=== PATIENT | male | born 1985 | race Caucasian/White ===

== ENCOUNTER 2023-09-19 13:02 | Emergency (ER) | payer OTHER, SELFPAY ==
[2023-09-19] VITALS (23 sets, daily range): BP systolic 123–142; BP diastolic 72–83; PULSE 95–133; RESP 24–28; TEMP 37.4–39.3; O2SAT 92–98; BMI 29.2
--- NOTE | 2023-09-19 13:20 | XR_ITS ---
Patient: MINO ESQUEDA Facility:?[facility] Patient ID:?[id number] Site Patient ID:?[id number]. Site :?[id number] Study:?XRay Chest 2V-09/19/2023 2:19:13 PM Ordering Physician:MIKEY Final Report: INDICATION: Cough. Fever. COMPARISON: None available. TECHNIQUE: 2 views. FINDINGS: Medical Devices: None. Lung Volumes: Adequate inspiration. No significant atelectasis. Lungs: Clear lungs. Pleura and Pleural spaces: No significant pleural effusion. No pneumothorax. Mediastinum: Normal cardiomediastinal silhouette. Bony Thorax and Soft Tissues: No significant incidental findings. IMPRESSION: No imaging findings pertinent to the indication for the exam or significant unrelated findings. Incidental findings described in the body of the report. Dictated by Thomas Sinclair MD @ 09/19/2023 2:23:55 PM (Electronic Signature)
[2023-09-19 13:41] LABS: Lactate Sepsis w/Reflex* 2.8 mmol/L (0.5-1.9)
--- NOTE | 2023-09-19 13:41 | ED_ITS ---
HPI - General Adult General Date Seen: 09/19/23 Chief complaint: Cough Stated complaint: Cough, severely short of breath Time Seen by Provider: 09/19/23 13:14 Source: patient, RN notes reviewed and old records reviewed Mode of arrival: ambulatory Limitations: no limitations History of Present Illness HPI narrative: Patient is a 38-year-old male who presents for evaluation of fever and cough. He says symptoms started 4 days ago with abrupt onset of fever and chills. He has not documented a temperature, but has had shaking chills. He developed a cough which is now productive. He has diffuse body aches. He has not had vomiting or diarrhea but occasionally feels nauseated. No unusual rashes, no black or bloody stools. He does have chest pain with coughing and breathing. Related Data Home Medications Medication Instructions Recorded Confirmed No Known Home Medications 09/19/23 09/19/23 Allergies Allergy/AdvReac Type Severity Reaction Status Date / Time metoclopramide [From Reglan] Allergy Unknown Verified 09/19/23 13:10 PFSH PFS Social History Smoking Status: Former smoker How often do you have a drink containing alcohol: 2-3 times a week How many standard drinks containing alcohol do you have on a typical day: 1 or 2 How often do you have six or more drinks on one occasion: Never AUDIT-C Alcohol total score: 3 Non-prescribed substance use: denies use Exam Const: Vital Signs, click to edit/add: Vital Signs - 24 hr 09/19/23 13:06 09/19/23 13:20 09/19/23 13:47 Temperature 99.4 F Pulse Rate Pulse Rate [Pulse Oximeter] 133 H 112 H Respiratory Rate 24 Blood Pressure Blood Pressure [Ri ght Upper Arm] 123/72 Pulse Oximetry 98 97 96 Oxygen Delivery Me thod Room Air Room Air 09/19/23 13:52 09/19/23 14:00 09/19/23 14:14 Temperature Pulse Rate 106 H 110 H 109 H Pulse Rate [Pulse Oximeter] Respiratory Rate Blood Pressure 142/78 H Blood Pressure [Ri ght Upper Arm] Pulse Oximetry 95 93 95 Oxygen Delivery Me thod 09/19/23 14:15 09/19/23 14:30 09/19/23 14:42 Temperature 100.0 F H Pulse Rate 108 H 113 H Pulse Rate [Pulse Oximeter] Respiratory Rate Blood Pressure Blood Pressure [Ri ght Upper Arm] Pulse Oximetry 95 96 Oxygen Delivery Me thod 09/19/23 14:43 09/19/23 14:44 09/19/23 14:45 Temperature Pulse Rate 108 H 107 H 103 H Pulse Rate [Pulse Oximeter] Respiratory Rate Blood Pressure 135/83 Blood Pressure [Ri ght Upper Arm] Pulse Oximetry 95 96 93 Oxygen Delivery Me thod 09/19/23 14:52 09/19/23 15:02 09/19/23 15:03 Temperature Pulse Rate 100 107 H Pulse Rate [Pulse Oximeter] Respiratory Rate 28 H Blood Pressure 142/81 H Blood Pressure [Ri ght Upper Arm] Pulse Oximetry 94 92 Oxygen Delivery Me thod 09/19/23 15:15 09/19/23 15:24 09/19/23 15:30 Temperature 102.8 F H Pulse Rate 101 H 104 H Pulse Rate [Pulse Oximeter] Respiratory Rate Blood Pressure Blood Pressure [Ri ght Upper Arm] Pulse Oximetry 92 94 Oxygen Delivery Me thod 09/19/23 15:32 09/19/23 15:35 Temperature 102.8 F H Pulse Rate 106 H Pulse Rate [Pulse Oximeter] Respiratory Rate Blood Pressure 128/79 Blood Pressure [Ri ght Upper Arm] Pulse Oximetry 96 Oxygen Delivery Me thod Course Course ED Course: Diagnostic considerations include viral or bacterial infection such as influenza, COVID RSV, pneumonia, pulmonary embolism, tachyarrhythmia, metabolic derangement, sepsis, among others. Patient had an EKG which showed a sinus tachycardia ventricular rate of 102. No acute ST segment changes. He had an IV placed, was given a L of normal saline. Did spike a temp up to 102.8 and was given some Tylenol. His labs show a slightly depressed white blood cell count of 4.16, normal hemoglobin. No significant left shift. D-dimer was 0.28. Metabolic panel was unremarkable. Blood sugar 120. Lactate initially was 2.8, repeat lactate after fluids was 0.5. I do think the lactate was as marker of dehydration rather than sepsis. LFTs are unremarkable. CRP mildly elevated at 4.7. Chest x-ray by my review was negative for pneumonia, congestive heart failure, effusion or other acute abnormalities. Final radiology read was negative. His viral swab was positive for influenza B. Diagnosis discussed with the patient. He is 4 days into his illness, I do not think there is any indication here for antivirals. Would recommend continued supportive care, ibuprofen and Tylenol for fever and aches, maintain hydration. Anticipate gradual improvement over the next 3-5 days. If no improvement, follow-up with primary care. Return to the ER at any time for acute worsening. Vital Signs Vital signs: Initial Vital Signs Temperature 99.4 F 09/19/23 13:06 Temperature Source Oral 09/19/23 13:06 Pulse Rate 133 H 09/19/23 13:06 Respiratory Rate 24 09/19/23 13:06 Blood Pressure 123/72 09/19/23 13:06 Blood Pressure Mean 89 09/19/23 13:06 Pulse Oximetry 98 09/19/23 13:06 Oxygen Delivery Method Room Air 09/19/23 13:06 Vital Signs Temperature 99.4 F 09/19/23 13:06 Pulse Rate 133 H 09/19/23 13:06 Respiratory Rate 24 09/19/23 13:06 Blood Pressure 123/72 09/19/23 13:06 Pulse Oximetry 98 09/19/23 13:06 Oxygen Delivery Method Room Air 09/19/23 13:06 Temperature 102.8 F H 09/19/23 15:35 Pulse Rate 106 H 09/19/23 15:32 Respiratory Rate 28 H 09/19/23 14:52 Blood Pressure 128/79 09/19/23 15:32 Pulse Oximetry 96 09/19/23 15:32 Oxygen Delivery Method Room Air 09/19/23 13:47 Medications Administered Medications: Discontinued Medications Generic Name Dose Route Start Last Admin Trade Name Freq PRN Reason Stop Dose Admin Acetaminophen 1,000 mg 09/19/23 15:33 09/19/23 15:35 Acetaminophen 500 Mg Tablet PO 09/19/23 15:34 1,000 mg ONCE ONE Administration Sodium Chloride 1,000 mls @ 1,000 mls/hr 09/19/23 13:30 09/19/23 14:43 0.9 % Sodium Chloride 1000 Ml IV 09/19/23 14:29 Infused .Q1H FATMATA Infusion Ketorolac Tromethamine 15 mg 09/19/23 13:20 09/19/23 13:45 Ketorolac 15 Mg/Ml Inj IVP 09/19/23 13:21 15 mg ONCE ONE Administration Ondansetron HCl 4 mg 09/19/23 13:20 09/19/23 14:44 Ondansetron 2 Mg/Ml Inj IVP 09/19/23 13:21 Not Given ONCE ONE Medical Decision Making Lab Data Labs: Lab Results 09/19/23 09/19/23 09/19/23 Range/Units 13:12 13:20 15:21 WBC 4.16 L (4.50-11.00) K/uL RBC 5.09 (4.30-5.90) m/uL Hgb 15.0 (13.5-17.5) gm/dL Hct 43.4 (37.0-53.0) % MCV 85 (80-100) fL MCH 30 (26-34) pg MCHC 35 (32-36) gm/dL RDW Coeff of Remigio 12.2 (11.5-15.5) % Plt Count 146 (140-440) K/uL Neut % (Auto) 75.0 H (42.0-72.0) % Lymph % (Auto) 11.1 L (20-44) % [place] % (Auto) 13.2 H (0.0-11.0) % Eos % (Auto) 0.5 (0.0-7.0) % Baso % (Auto) 0.2 (0.0-3.0) % Neut # (Auto) 3.10 (1.7-7.0) K/uL Lymph # (Auto) 0.50 L (0.90-2.90) K/uL [place] # (Auto) 0.50 (0.00-0.90) K/UL Eos # (Auto) 0.00 (0.00-0.50) K/uL Baso # (Auto) 0.00 (0.00-0.30) K/uL Abs Immat Gran (auto) 0.00 (0.00-0.30) K/uL Imm/Tot Granulo (auto) 0.0 % D-Dimer Quant (PE/DVT) (0.00-0.50) ug/ml Sodium 136 (135-149) mmol/L Potassium 3.5 L (3.6-5.1) mmol/L Chloride 103 (96-114) mmol/L Carbon Dioxide 22 (20-32) mmol/L Anion Gap 11 (7-15) mEq/L BUN 9 (5-24) mg/dL Creatinine 1.0 (0.5-1.5) mg/dL Estimated Creat Clear 83.87 Estimated GFR 99 ml/min Glucose 120 H (60-115) mg/dL Lactate 2.8 H 0.5 (0.5-1.9) mmol/L Calcium 9.0 (8.4-10.6) mg/dL Total Bilirubin 0.6 (0.1-1.5) mg/dL Direct Bilirubin 0.2 (0.0-0.5) mg/dL AST 25 (12-35) U/L ALT 20 (4-50) U/L Alkaline Phosphatase 62 (40-150) U/L C-Reactive Protein 4.7 H (0.5-1.0) mg/dL Total Protein 7.1 (6.0-8.3) g/dL Albumin 4.3 (3.3-5.0) g/dL SARS-CoV-2 (PCR) Negative SARS-CoV-2 (Negative) Influenza Type A (PCR) Negative PCR FLU A (Negative) Influenza Type B (PCR) POSITIVE PCR FLU B A (Negative) RSV (PCR) Negative PCR RSV (Negative) 09/19/23 Range/Units Unknown WBC (4.50-11.00) K/uL RBC (4.30-5.90) m/uL Hgb (13.5-17.5) gm/dL Hct (37.0-53.0) % MCV (80-100) fL MCH (26-34) pg MCHC (32-36) gm/dL RDW Coeff of Remigio (11.5-15.5) % Plt Count (140-440) K/uL Neut % (Auto) (42.0-72.0) % Lymph % (Auto) (20-44) % [place] % (Auto) (0.0-11.0) % Eos % (Auto) (0.0-7.0) % Baso % (Auto) (0.0-3.0) % Neut # (Auto) (1.7-7.0) K/uL Lymph # (Auto) (0.90-2.90) K/uL [place] # (Auto) (0.00-0.90) K/UL Eos # (Auto) (0.00-0.50) K/uL Baso # (Auto) (0.00-0.30) K/uL Abs Immat Gran (auto) (0.00-0.30) K/uL Imm/Tot Granulo (auto) % D-Dimer Quant (PE/DVT) 0.28 (0.00-0.50) ug/ml Sodium (135-149) mmol/L Potassium (3.6-5.1) mmol/L Chloride (96-114) mmol/L Carbon Dioxide (20-32) mmol/L Anion Gap (7-15) mEq/L BUN (5-24) mg/dL Creatinine (0.5-1.5) mg/dL Estimated Creat Clear Estimated GFR ml/min Glucose (60-115) mg/dL Lactate (0.5-1.9) mmol/L Calcium (8.4-10.6) mg/dL Total Bilirubin (0.1-1.5) mg/dL Direct Bilirubin (0.0-0.5) mg/dL AST (12-35) U/L ALT (4-50) U/L Alkaline Phosphatase (40-150) U/L C-Reactive Protein (0.5-1.0) mg/dL Total Protein (6.0-8.3) g/dL Albumin (3.3-5.0) g/dL SARS-CoV-2 (PCR) (Negative) Influenza Type A (PCR) (Negative) Influenza Type B (PCR) (Negative) RSV (PCR) (Negative) Discharge Plan Discharge Clinical Impression: Influenza B Patient Disposition: Home, Self-Care Condition: Improved Instructions: Influenza (ED) Additional Instructions: Ibuprofen 400 mg plus Tylenol 1000 mg three times daily with food for the next few days. Influenza is viral and will improve with time. No evidence today of pneumonia or other serious infection. See your clinic if not improved over the next 5 days. For acute worsening, return to the ER. Prescriptions: No Action No Known Home Medications Follow Up/Referrals: Provider,Not a Local [Primary Care Provider] - Stand Alone Forms: [employer] Info Instructions
[2023-09-19 13:45] LABS: Basophils Percent Auto 0.2 % (0.0-3.0); Eosinophils Percent Auto 0.5 % (0.0-7.0); Hematocrit 43.4 % (37.0-53.0); Lymphocytes Percent Auto 11.1 % (20-44); Mean Corpuscular HGB Conc 35 gm/dL (32-36); Mean Corpuscular Hemoglobin 30 pg (26-34); Mean Corpuscular Volume 85 fL (80-100); Monocytes Percent Auto 13.2 % (0.0-11.0); Platelet Count* 146 K/uL (140-440); RDW Coefficient of Variation % 12.2 % (11.5-15.5); Red Blood Count 5.09 m/uL (4.30-5.90); White Blood Count* 4.16 K/uL (4.50-11.00)
[2023-09-19] MEDS: 0.9 % SODIUM CHLORIDE 1000 ml 1,000 ML IV (13:45)
[2023-09-19] MEDS: KETOROLAC 15 MG/ML inj IVP (13:45)
[2023-09-19 13:56] LABS: Slide Review Reflex No
[2023-09-19 13:58] LABS: Chloride* 103 mmol/L (96-114); Potassium* 3.5 mmol/L (3.6-5.1); Sodium* 136 mmol/L (135-149)
[2023-09-19 13:59] LABS: PCR FLU A Negative PCR FLU A (Negative); PCR FLU B POSITIVE PCR FLU B (Negative); PCR RSV Negative PCR RSV (Negative); SARS PCR* Negative SARS-CoV-2 (Negative)
[2023-09-19 14:01] LABS: Est. Creatinine Clearance* 83.87; Estimated Glomerular Filt Rate 99 ml/min
[2023-09-19 14:02] LABS: Anion Gap 11 mEq/L (7-15); Blood Urea Nitrogen* 9 mg/dL (5-24); Carbon Dioxide* 22 mmol/L (20-32); Glucose* 120 mg/dL (60-115)
[2023-09-19 14:05] LABS: C Reactive Protein* 4.7 mg/dL (0.5-1.0)
[2023-09-19 14:10] LABS: D Dimer Quantitative* 0.28 ug/ml (0.00-0.50)
[2023-09-19 14:10] LABS: Albumin* 4.3 g/dL (3.3-5.0)
[2023-09-19 14:13] LABS: Bilirubin Direct* 0.2 mg/dL (0.0-0.5); Bilirubin Total* 0.6 mg/dL (0.1-1.5)
[2023-09-19 14:14] LABS: Alanine Aminotransferase* 20 U/L (4-50); Alkaline Phosphatase* 62 U/L (40-150); Aspartate Amino Transferase* 25 U/L (12-35); Total Protein* 7.1 g/dL (6.0-8.3)
[2023-09-19 15:24] LABS: Lactate Sepsis 2 Hour 0.5 mmol/L (0.5-1.9)
[2023-09-19] MEDS: ACETAMINOPHEN 500 MG TABLET 1000 MG PO (15:35)
== END 2023-09-19 16:10 | disposition home or self-care (01) ==
PROVIDERS: Emergency Provider Emergency Medicine
DX: J10.1 Influenza due to other identified influenza virus with other respiratory manifestations (principal)
CPT/HCPCS: 36415; 71046; 80048; 80076; 83605; 85025; 85379; 86140; 87040; 87631; 93005; 94761; 96374; 99284; 99285; A9270; J1885; J7030

== ENCOUNTER 2024-02-18 16:53 | Emergency (ER) | payer OTHER, SELFPAY ==
[2024-02-18 17:12] VITALS: BP 136/97; PULSE 82; RESP 16; TEMP 36.7; O2SAT 98; BMI 29.2
[2024-02-18 18:07] LABS: Basophils Absolute Auto 0.04 K/uL (0.00-0.30); Basophils Percent Auto 0.6 % (0.0-3.0); Eosinophils Absolute Auto 0.21 K/uL (0.00-0.50); Eosinophils Percent Auto 3.2 % (0.0-7.0); Hematocrit 46.1 % (37.0-53.0); Hemoglobin* 15.8 gm/dL (13.5-17.5); Immature Granulocytes Abs Auto 0.01 K/uL (0.00-0.30); Immature Granulocytes Pct Auto 0.2 %; Lymphocytes Absolute Auto 1.68 K/uL (0.90-2.90); Lymphocytes Percent Auto 25.3 % (20-44); Mean Corpuscular HGB Conc 34 gm/dL (32-36); Mean Corpuscular Hemoglobin 29 pg (26-34); Mean Corpuscular Volume 86 fL (80-100); Monocytes Percent Auto 7.4 % (0.0-11.0); Neutrophils Absolute Auto 4.22 K/uL (1.7-7.0); Neutrophils Percent Auto 63.3 % (42.0-72.0); Platelet Count* 230 K/uL (140-440); RDW Coefficient of Variation % 12.1 % (11.5-15.5); Red Blood Count 5.39 m/uL (4.30-5.90); White Blood Count* 6.65 K/uL (4.50-11.00)
[2024-02-18 18:09] LABS: Slide Review Reflex No
[2024-02-18 18:24] LABS: Albumin* 4.6 g/dL (3.3-5.0); Chloride* 105 mmol/L (96-114)
[2024-02-18 18:25] LABS: Potassium* 3.9 mmol/L (3.6-5.1); Sodium* 138 mmol/L (135-149)
[2024-02-18 18:27] LABS: Anion Gap 9 mEq/L (7-15); Aspartate Amino Transferase* 20 U/L (12-35); Bilirubin Direct* 0.3 mg/dL (0.0-0.5); Bilirubin Total* 0.9 mg/dL (0.1-1.5); Blood Urea Nitrogen* 9 mg/dL (5-24); Carbon Dioxide* 24 mmol/L (20-32); Est. Creatinine Clearance* 83.87; Estimated Glomerular Filt Rate 99 ml/min; Glucose* 108 mg/dL (60-115); Total Protein* 7.2 g/dL (6.0-8.3)
[2024-02-18 18:28] LABS: Alanine Aminotransferase* 18 U/L (4-50); Alkaline Phosphatase* 62 U/L (40-150); Calcium* 9.4 mg/dL (8.4-10.6)
--- NOTE | 2024-02-18 18:31 | ED.GENADULT ---
HPI - General Adult General Date Seen: 02/18/24 Chief complaint: Unspecified Complaint, Adult Stated complaint: mental health Time Seen by Provider: 02/18/24 17:13 Source: patient and family Mode of arrival: ambulatory Limitations: no limitations History of Present Illness HPI narrative: Patient is the 38-year-old gentleman seen by myself, he is here with his alex they are getting a divorce, he is here to discuss mental health issues. He feels depressed for the last month 6 weeks. She feels some mild anxiety with this is not all suicidal, just return from a trip where he drove out to see another person on the [facility]. He wants to get back into counseling, has he has 3 children with his , and still wants to have a relationship with them. He is planning on going tonight this stay with his mother, she lives approximately an hour away. Denies any substance abuse issues any alcohol issues. He says remotely in the past 20 years ago he did have some problems with substance abuse. He was lasting counseling approximately 2-3 years ago, does report any hospitalizations, denies any suicidal attempts in the past. Has recently lost his job but this is full-time job still has a part-time job, no access to firearms. His goal with this visit is to the get set up with possible counseling, and a referral so he may get back on medications he believes he was on Zoloft in the past. Related Data Home Medications ?Medication ?Instructions ?Recorded ?Confirmed No Known Home Medications 09/19/23 09/19/23 Allergies Allergy/AdvReac Type Severity Reaction Status Date / Time metoclopramide [From Reglan] Allergy Unknown Verified 02/18/24 17:12 Review of Systems Status of ROS: Reports: 10 or more systems reviewed and unremarkable except as noted in History and below PFSH PFSH Social History Smoking Status: Former smoker Do you use any of these nicotine containing products: Vaping Products How often do you have a drink containing alcohol: 2-3 times a week How many standard drinks containing alcohol do you have on a typical day: 1 or 2 How often do you have six or more drinks on one occasion: Never AUDIT-C Alcohol total score: 3 Non-prescribed substance use: denies use Exam Narrative: Exam Narrative: On examination in room 1 he is in no apparent distress. He is here today with his alex, pupils are equal round reactive to light were oriented to x3, GCS 15/15 speaking normally, cranial nerves 3-12 are normal and tested TMs are normal, neck is supple, chest is good air entry bilateral with no wheezing crackles noted heart sounds are normal, abdomen is soft, no guarding no organomegaly bowel sounds are normal, he is able to walk normally there is no tremors, no rashes, Const: Vital Signs, click to edit/add: Vital Signs - 24 hr 02/18/24 17:12 Temperature 98.1 F Pulse Rate [Pulse Oximeter] 82 Respiratory Rate 16 Blood Pressure [Le ft Upper Arm] 136/97 H Pulse Oximetry 98 Oxygen Delivery Me thod Room Air Documenting provider has reviewed patient's vital signs: yes Course Vital Signs Vital signs: Initial Vital Signs Temperature 98.1 F 02/18/24 17:12 Temperature Source Temporal Artery Scan 02/18/24 17:12 Pulse Rate 82 02/18/24 17:12 Pulse Rhythm Regular 02/18/24 17:12 Respiratory Rate 16 02/18/24 17:12 Blood Pressure 136/97 H 02/18/24 17:12 Blood Pressure Mean 110 H 02/18/24 17:12 Blood Pressure Position Sitting 02/18/24 17:12 Pulse Oximetry 98 02/18/24 17:12 Oxygen Delivery Method Room Air 02/18/24 17:12 Vital Signs Temperature 98.1 F 02/18/24 17:12 Pulse Rate 82 02/18/24 17:12 Respiratory Rate 16 02/18/24 17:12 Blood Pressure 136/97 H 02/18/24 17:12 Pulse Oximetry 98 02/18/24 17:12 Oxygen Delivery Method Room Air 02/18/24 17:12 Temperature 98.1 F 02/18/24 17:12 Pulse Rate 82 02/18/24 17:12 Respiratory Rate 16 02/18/24 17:12 Blood Pressure 136/97 H 02/18/24 17:12 Pulse Oximetry 98 02/18/24 17:12 Oxygen Delivery Method Room Air 02/18/24 17:12 Medical Decision Making MDM Narrative Medical decision making narrative: I discussed with the patient we will do some general labs, I will put in a referral to our social security benefits interviewer will call in tomorrow to get him set up with some options here locally where he can call and get counseling. If he does worsen then I would like him seen back in the emergency room we went over signs symptoms of worsening such as suicidal ideation. He was very comfortable this plan of waiting labs. No indication now that he is to be put on a hold. Lab Data Lab results reviewed: Yes I reviewed the patient's lab results Labs: Lab Results 02/18/24 02/18/24 Range/Units 17:58 19:05 WBC 6.65 (4.50-11.00) K/uL RBC 5.39 (4.30-5.90) m/uL Hgb 15.8 (13.5-17.5) gm/dL Hct 46.1 (37.0-53.0) % MCV 86 (80-100) fL MCH 29 (26-34) pg MCHC 34 (32-36) gm/dL RDW Coeff of Remigio 12.1 (11.5-15.5) % Plt Count 230 (140-440) K/uL Neut % (Auto) 63.3 (42.0-72.0) % Lymph % (Auto) 25.3 (20-44) % [place] % (Auto) 7.4 (0.0-11.0) % Eos % (Auto) 3.2 (0.0-7.0) % Baso % (Auto) 0.6 (0.0-3.0) % Neut # (Auto) 4.22 (1.7-7.0) K/uL Lymph # (Auto) 1.68 (0.90-2.90) K/uL [place] # (Auto) 0.50 (0.00-0.90) K/UL Eos # (Auto) 0.21 (0.00-0.50) K/uL Baso # (Auto) 0.04 (0.00-0.30) K/uL Abs Immat Gran (auto) 0.01 (0.00-0.30) K/uL Imm/Tot Granulo (auto) 0.2 % Sodium 138 (135-149) mmol/L Potassium 3.9 (3.6-5.1) mmol/L Chloride 105 (96-114) mmol/L Carbon Dioxide 24 (20-32) mmol/L Anion Gap 9 (7-15) mEq/L BUN 9 (5-24) mg/dL Creatinine 1.0 (0.5-1.5) mg/dL Estimated Creat Clear 83.87 Estimated GFR 99 ml/min Glucose 108 (60-115) mg/dL Calcium 9.4 (8.4-10.6) mg/dL Total Bilirubin 0.9 (0.1-1.5) mg/dL Direct Bilirubin 0.3 (0.0-0.5) mg/dL AST 20 (12-35) U/L ALT 18 (4-50) U/L Alkaline Phosphatase 62 (40-150) U/L Total Protein 7.2 (6.0-8.3) g/dL Albumin 4.6 (3.3-5.0) g/dL TSH 1.590 (0.270-4.20) uIU/mL Salicylates < 1.0 L (1.0-10) mg/dL Urine Opiates Screen Negative (Negative) Ur Oxycodone Screen Negative (Negative) Urine Methadone Screen Negative (Negative) Acetaminophen < 10.0 L (10.0-30.0) ug/mL Ur Barbiturates Screen Negative (Negative) U Tricyclic Antidepress Negative (Negative) Ur Phencyclidine Scrn Negative (Negative) Ur Amphetamines Screen Negative (Negative) U Methamphetamines Scrn Negative (Negative) U Benzodiazepines Scrn Negative (Negative) Urine Cocaine Screen Negative (Negative) U Marijuana (THC) Screen Negative (Negative) Ur Drug Screen Comment See Note Ethyl Alcohol < 0.01 L (0.01-0.03) % Discharge Plan Discharge Clinical Impression: Depression Patient Disposition: Home, Self-Care Condition: Stable Instructions: Depression (ED) Additional Instructions: I will have our social security benefits interviewer contact you tomorrow about resources available to you in the community, obviously if things worsen you become suicidal or change, then come back to the emergency room. If a note is needed for work then I am also happy to give this. Nurse, please ensure that the numbers do not get a hold of this patient are correct Activity Level: Light activity Prescriptions: No Action No Known Home Medications Follow Up/Referrals: Provider,Not a Local [Primary Care Provider] - Stand Alone Forms: [employer] Info Instructions
[2024-02-18 18:32] LABS: Acetaminophen* < 10.0 ug/mL (10.0-30.0); Ethanol* < 0.01 % (0.01-0.03)
[2024-02-18 18:33] LABS: Salicylate* < 1.0 mg/dL (1.0-10)
[2024-02-18 19:20] LABS: Amphetamine Screen Urine Negative (Negative); Barbiturate Screen Urine Negative (Negative); Benzodiazepines Screen Urine Negative (Negative); Cannabinoid Screen Urine Negative (Negative); Cocaine Screen Urine Negative (Negative); Methadone Screen Urine Negative (Negative); Methamphetamines Screen Urine Negative (Negative); Opiate Screen Urine Negative (Negative); Oxycodone Screen Urine Negative (Negative); Phencyclidine Screen Urine Negative (Negative); Tricyclic Antidepressant Urine Negative (Negative)
--- NOTE | 2024-02-19 11:27 | PC.SOCIAL ---
Social work: Per MD order for social studies department chair to follow up with community resources for out-pt counseling, called pt and left message requesting call back. draw off worker awaiting call back and will follow up if pt calls back and requests assistance.
== END 2024-02-18 19:49 | disposition home or self-care (01) ==
PROVIDERS: Emergency Provider Family Medicine
DX: F32.A Depression, unspecified (principal)
CPT/HCPCS: 36415; 80048; 80076; 80143; 80179; 80306; 82077; 84443; 85025; 99283; 99284